=== PATIENT | female | born 1965 | race Two or more races ===

== ENCOUNTER 2018-07-04 13:52 | Inpatient (IN) | payer OTHER ==
[~2018-07-04] VITALS: Ht 154.9 cm; Wt 88.5 kg
[2018-07-04] MEDS ORDERED: CYMBALTA60 MG PO (15:22)
[2018-07-04] MEDS ORDERED: PLAQUENIL PO (15:22)
[2018-07-07] MEDS ORDERED: HYDROXYCHLOROQ200 MG PO (10:17)
[2018-07-08] MEDS ORDERED: GABAPENTIN100 MG PO (11:10)
[2018-07-08] MEDS ORDERED: PEPCID20 MG PO (11:11)
[2018-07-08] MEDS ORDERED: CELEBREX200MG PO (11:12)
== END 2018-07-08 11:37 | disposition home or self-care (01) | DRG 743 ==
LOC: OB/GYN 07-06 05:37 → O/R 07-06 05:37 → SURH 07-06 07:15 → OB/GYN 07-06 14:37
PROVIDERS: Surgery; ADMIT Obstetrics & Gynecology
PROC: 0UT9FZZ Resection of Uterus, Via Natural or Artificial Opening With Percutaneous Endoscopic Assistance (ICD-10-PCS; principal; 2018-07-06 07:15)
PROC: 0DN84ZZ Release Small Intestine, Percutaneous Endoscopic Approach (ICD-10-PCS; 2018-07-06 07:15)
DX: N80.0 Endometriosis of uterus (principal); D25.1 Intramural leiomyoma of uterus; D25.2 Subserosal leiomyoma of uterus; K66.0 Peritoneal adhesions (postprocedural) (postinfection); N72 Inflammatory disease of cervix uteri; M06.89 Other specified rheumatoid arthritis, multiple sites; M25.511 Pain in right shoulder

== ENCOUNTER 2018-07-10 12:38 | Emergency (ER) | payer OTHER ==
[~2018-07-10] VITALS: Ht 154.9 cm; Wt 88.5 kg
[~2018-07-10 12:38] MED LIST: CELEBREX200MG PO; CYMBALTA60 MG PO; GABAPENTIN100 MG PO; HYDROXYCHLOROQ200 MG PO; PEPCID20 MG PO; PLAQUENIL PO
[2018-07-10] MEDS ORDERED: OMEPRAZOLE40 MG (13:19)
[2018-07-10] MEDS ORDERED: PLAQUENIL 200 (13:21)
== END 2018-07-10 20:00 | disposition home or self-care (01) ==
LOC: ER 12:38
DX: G89.18 Other acute postprocedural pain (principal); M79.605 Pain in left leg; M79.652 Pain in left thigh; M25.562 Pain in left knee; M79.604 Pain in right leg; I01.1 Acute rheumatic endocarditis; I73.9 Peripheral vascular disease, unspecified

== ENCOUNTER 2024-03-23 10:23 | Outpatient (CLI) | payer OTHER ==
[~2024-03-23 10:23] MED LIST changes: +OMEPRAZOLE40 MG; +PLAQUENIL 200
== END 2024-03-23 10:24 | disposition home or self-care (01) ==
LOC: NUCLEAR 10:23
DX: I73.9 Peripheral vascular disease, unspecified (principal); I87.2 Venous insufficiency (chronic) (peripheral)